=== PATIENT | female | born 1975 | race Caucasian/White ===

== ENCOUNTER → 2016-10-20 | Outpatient (CLI) | payer BC, OTHER ==
[2016-10-28 14:05] LABS: HPV 16 Detected (NOTDET); HPV 18 Not Detected (NOTDET)
== END | disposition home or self-care (01) ==
LOC: MW.CHOBGYN 09:30
PROVIDERS: ATTEND Nurse Practitioner Women's Health
DX: R87.610 Atypical squamous cells of undetermined significance on cytologic smear of cervix (ASC-US) (principal); R87.810 Cervical high risk human papillomavirus (HPV) DNA test positive
CPT/HCPCS: 87624; G0145

== ENCOUNTER → 2016-11-09 | Outpatient (CLI) | payer BC, OTHER | LOC: MW.CHFP 10:50 | PROVIDERS: ATTEND Emergency Medicine | DX: J03.90 Acute tonsillitis, unspecified (principal) | CPT/HCPCS: 36415; 85025; 86308; 87880 ==